=== PATIENT | female | born 1990 | race African-American/Black ===

== ENCOUNTER 2020-07-14 19:23 | Emergency (ER) | payer OTHER ==
[~2020-07-14] VITALS: Ht 162.6 cm; Wt 115.5 kg
--- NOTE | 2020-07-14 20:54 | REPVR ---
PROCEDURE INFORMATION: Exam: XR Right Humerus Exam date and time: 07/14/2020 8:42 PM Age: 29 years old Clinical indication: Pain and injury or trauma; Fall; Initial encounter; Dislocation; Severity not specified; Humerus, proximal end; Right; Upper arm; Additional info: Pain/swelling after fall TECHNIQUE: Imaging protocol: XR Right humerus Views: 2 or more views. COMPARISON: No relevant prior studies available. FINDINGS: Bones/joints: Anteroinferior dislocation of the right shoulder. The humeral head rests against the anteroinferior glenoid. No fracture is seen. Soft tissues: Normal. IMPRESSION: 1. Anterioinferior dislocation of the right shoulder. 2. Otherwise negative right humerus. Electronically signed by: Yon Hartmann On 07/14/2020 20:55:09 PM
[2020-07-14] MEDS ORDERED: MORPHINE 4 MG/ML 1ML VIAL/SYRINGE (J2270) As Ordered ONE (21:04)
[2020-07-14] MEDS ORDERED: ONDANSETRON 4MG/2ML VIAL As Ordered ONE (21:04)
[2020-07-14] MEDS ORDERED: LORazepam 2 MG/ML VIAL IV STA (21:06)
[2020-07-14] MEDS ORDERED: MORPHINE 4 MG/ML 1ML VIAL/SYRINGE (J2270) IV ONE (21:15)
[2020-07-14] MEDS ORDERED: ONDANSETRON 4MG/2ML VIAL IV ONE (21:15)
[2020-07-14] MEDS ORDERED: NORC1TAB7 PO (21:50)
[2020-07-14] MEDS ORDERED: NORCO 5/325MG TABLET (BULK FOR ED) PO ONE (22:00)
[2020-07-14 22:05] VITALS: BP 140/80
--- NOTE | 2020-07-14 22:05 | REPVR ---
PROCEDURE INFORMATION: Exam: XR Right Shoulder Exam date and time: 07/14/2020 9:54 PM Age: 29 years old Clinical indication: Condition or disease; Other: Post reduction TECHNIQUE: Imaging protocol: XR Right shoulder. Views: 1 view. COMPARISON: No relevant prior studies available. FINDINGS: Bones/joints: Anatomic reduction of previously dislocated right shoulder. No fractures. Soft tissues: Normal. IMPRESSION: 1. Anatomic reduction of previously dislocated right shoulder since a study done earlier in the day. 2. No fractures. Electronically signed by: Yon Hartmann On 07/14/2020 22:05:42 PM
== END 2020-07-14 22:24 | disposition home or self-care (01) ==
LOC: M ED 19:23
DX: S43.004A Unspecified dislocation of right shoulder joint, initial encounter (principal); W19.XXXA Unspecified fall, initial encounter; Y92.018 Other place in single-family (private) house as the place of occurrence of the external cause
CPT/HCPCS: 23650; 73020; 73060; 94760; 96374; 96375; 99284; J2060; J2270; J2405